=== PATIENT | female | born 1985 | race Caucasian/White ===

== ENCOUNTER 2016-12-05 09:40 | Emergency (ER) | payer BC, OTHER ==
[2016-12-05 11:11] VITALS: BP 165/98
--- NOTE | 2016-12-05 11:25 | RAD ---
HISTORY: Left foot trauma COMPARISONS: None VIEWS: 3, Frontal, lateral, and oblique views of the left foot FINDINGS: BONE DENSITY: Normal. BONES: There is no displaced fracture. There is remote posttraumatic deformity to the fourth metatarsal. JOINTS: There is no arthropathy. ALIGNMENT: There is no dislocation. SOFT TISSUES: Unremarkable. OTHER FINDINGS: None. IMPRESSION: NO ACUTE OSSEOUS INJURY. IF SYMPTOMS PERSIST, RECOMMEND REPEAT IMAGING.
--- NOTE | 2016-12-05 12:28 | UC ---
Lower Extremity/Ankle HPI - HPI Summary HPI Summary: c/o L foot pain since yesterday after 1700. Pt states her coin box from her work station fell off of a chair and landed on the top of her L foot. Red jenifer noted to top of foot along with slight bruising and swelling. Pt states a past hx of fx to toes 2,3,4 when she was 15. Denies other symptoms. Denies numbness , tingling, or temperature changes. She has a hx of chrons disease, but is otherwise healthy. Has been icing with minimal relief. - History of Current Complaint Chief Complaint: UCLowerExtremity Stated Complaint: LEFT FOOT INJURY WC Time Seen by Provider: 12/05/16 11:07 Hx Obtained From: Patient Hx Last Menstrual Period: 11/07/16 ?: No Onset/Duration: Sudden Onset Severity Initially: Mild Severity Currently: Mild Pain Intensity: 2 Pain Scale Used: 0-10 Numeric Aggravating Factor(s): Standing, Ambulation Alleviating Factor(s): Rest Able to Bear Weight: No Related History: Occupational Injury - Risk Factors Gout Risk Factors: Negative DVT Risk Factors: Negative Septic Arthritis Risk Factor: Negative - Allergies/Home Medications Allergies/Adverse Reactions: Allergies Allergy/AdvReac Type Severity Reaction Status Date / Time Cephalexin [From Keflex] Allergy Hives Verified 12/05/16 11:11 PMH/Surg Hx/FS Hx/Imm Hx Previously Healthy: Yes - Surgical History Surgical History: Yes Surgery Procedure, Year, and Place: laproscopic Illeiocolectomy 2009. T&A as child - Family History Known Family History: Positive: Unknown - Social History Occupation: Employed Full-time Lives: With Family Alcohol Use: Occasionally Substance Use Type: None Smoking Status (MU): Heavy Every Day Tobacco Smoker Type: Cigarettes Amount Used/How Often: 1 ppd Length of Time of Smoking/Using Tobacco: since age 16 Have You Smoked in the Last Year: Yes Review of Systems Constitutional: Negative Respiratory: Negative Cardiovascular: Negative Gastrointestinal: Negative Motor: Negative Neurovascular: Negative Musculoskeletal: Arthralgia Neurological: Negative Psychological: Negative All Other Systems Reviewed And Are Negative: Yes Physical Exam Triage Information Reviewed: Yes Appearance: Well-Appearing, No Pain Distress, Well-Nourished Vital Signs: Initial Vital Signs Temp 99.2 F 12/05/16 11:03 Pulse 85 12/05/16 11:03 Resp 16 12/05/16 11:03 BP 165/98 12/05/16 11:03 Pulse Ox 100 12/05/16 11:03 Vital Signs Reviewed: Yes Eye Exam: Normal Eyes: Positive: Conjunctiva Clear Neck exam: Normal Neck: Positive: No Lymphadenopathy Respiratory: Positive: Chest non-tender Cardiovascular Exam: Normal Cardiovascular: Positive: RRR Musculoskeletal Exam: Normal Musculoskeletal: Positive: Strength Intact, Other: - pain over dorsum aspect of foot with slight bruising and redness Psychological: Positive: Normal Response To Family Skin Exam: Normal Lower Extremity Course/Dx - Course Course Of Treatment: Patient presents with CC of pain over dorsum aspect of foot yesterday with slight bruising and redness after coin box at work dropped on her foot. She was sent here by work and is a case. Denies other symptoms. Xray negative for acute fx. Patient will follow up as needed. Motrin for pain. - Differential Dx/Diagnosis Differential Diagnosis/HQI/PQRI: Contusion, Fracture (Closed), Sprain, Strain Provider Diagnoses: FOOT CONTUSION Discharge - Discharge Plan Condition: Stable Disposition: HOME Patient Education Materials: Foot Contusion (ED) Forms: *Work Release Referrals: Stephany Fortune PA [Primary Care Provider] - Additional Instructions: FOLLOW UP NEEDED DX: FOOT CONTUSION IF SYMPTOMS PERSIST, RETURN TO UC OR GO TO ED ICE ONE MORE DAY, THEN HEAT IF SYMPTOMS REMAIN IBUPROFEN FOR RELIEF.
== END 2016-12-05 11:45 | disposition home or self-care (01) ==
LOC: UCCORT 09:40
DX: S90.32XA Contusion of left foot, initial encounter (principal); W20.8XXA Other cause of strike by thrown, projected or falling object, initial encounter; Y99.0 Civilian activity done for income or pay
CPT/HCPCS: 99211; G0463